=== PATIENT | female | born 1965 | race Caucasian/White ===

== ENCOUNTER → 2020-09-12 | Outpatient (CLI) | payer BC | END | disposition home or self-care (01) | LOC: COVID19 13:22 | PROVIDERS: ATTEND Internal Medicine | DX: Z11.52 Encounter for screening for COVID-19 (principal) ==

== ENCOUNTER → 2020-09-19 | Outpatient (CLI) | payer BC | END | disposition home or self-care (01) | LOC: COVID19 15:34 | PROVIDERS: ATTEND Student in an Organized Health Care Education/Training Program | DX: U07.1 COVID-19 (principal) ==

== ENCOUNTER 2020-10-28 07:55 | Emergency (ER) | payer BC ==
[~2020-10-28] VITALS: Ht 165.1 cm; Wt 119.7 kg
== END 2020-10-28 09:30 | disposition home or self-care (01) ==
LOC: ED 07:55
DX: S59.902A Unspecified injury of left elbow, initial encounter (principal); W00.2XXA Other fall from one level to another due to ice and snow, initial encounter; Y93.89 Activity, other specified; Y92.89 Other specified places as the place of occurrence of the external cause; Y99.8 Other external cause status